=== PATIENT | male | born 1960 | race Caucasian/White ===

== ENCOUNTER 2019-10-08 13:42 | Emergency (ER) | payer MEDICARE ==
[~2019-10-08] VITALS: Ht 175.3 cm; Wt 80.0 kg
[2019-10-08 14:28] VITALS: BP 144/96
--- NOTE | 2019-10-08 15:54 | NUR ---
NEW COLOSTOMY BAG APPLIED AND PT PROVIED W TWO COMPLETE KITS
== END 2019-10-08 16:27 | disposition home or self-care (01) ==
LOC: ED 15:11
DX: K94.00 Colostomy complication, unspecified (principal)
CPT/HCPCS: 99283; 99284

== ENCOUNTER 2019-10-25 10:19 | Emergency (ER) | payer MEDICARE ==
[~2019-10-25] VITALS: Ht 175.3 cm; Wt 74.0 kg
[2019-10-25 10:21] VITALS: BP 146/110
--- NOTE | 2019-10-25 10:57 | NUR ---
PT WITH C/O BEING OUT OF COLOSTOMY BAGS AND PAIN AROUND STOMA SITE D/T FECES ON SKIN FOR A FEW DAYS. ERMD IN TO EVAL PT. SUPPLIES ORDERED FOR COLOSTOMY CHANGE. PT ABD CLEASED OF STOOL. NEW OSTOMY SET APPLIED. PT GIVEN THREE ADDITIONAL KITS.
--- NOTE | 2019-10-25 11:15 | NUR ---
PT TOLD THIS RN WOULD SPEAK TO MD TO DISCUSS FURTHER PLANS OR ORDERS, THIS RN THEN HEARD YELLING AT DC DESK AND BANGING AGAINST THE DOOR. WHEN ASKED, DC DESK STATES THE PT SAID HE WAS "DONE AND READY TO GO IM LEAVING NOW". PT ELOPED, NO DC ORDERS, NO INSTRUCTIONS GIVEN. Addendum: 10/25/19 at 1137 by REJI MD AND SECURITIES SETTLEMENT PROCESSOR UPDATED ON ELOPEMENT
== END 2019-10-25 11:35 | disposition left against medical advice (07) ==
LOC: ED 11:00
DX: R11.10 Vomiting, unspecified (principal); F17.210 Nicotine dependence, cigarettes, uncomplicated
CPT/HCPCS: 99281